=== PATIENT | female | born 1995 | race Two or more races ===

== ENCOUNTER 2017-05-30 02:00 | Emergency (ER) | payer SELFPAY ==
[2017-05-30] MEDS: PENICILLIN V K 250 MG TABLET. PO (03:31)
[2017-05-30] MEDS: HYDROcodone/APAP 5/325MG 1 TAB TABLET PO (03:31)
== END 2017-05-30 03:33 | disposition home or self-care (01) ==
LOC: ER 02:00
DX: K08.89 Other specified disorders of teeth and supporting structures (principal)
CPT/HCPCS: 99283

== ENCOUNTER 2017-07-18 13:12 | Emergency (ER) | payer SELFPAY | END 2017-07-18 13:53 | disposition home or self-care (01) | LOC: ER 13:12 | DX: H66.92 Otitis media, unspecified, left ear (principal); R09.81 Nasal congestion; J30.2 Other seasonal allergic rhinitis | CPT/HCPCS: 99283 ==